=== PATIENT | male | born 1995 | race Caucasian/White ===

== ENCOUNTER 2022-01-01 13:37 | Emergency (ER) | payer OTHER, SELFPAY ==
[2022-01-01 13:52] VITALS: BP 162/82; PULSE 103; RESP 18; TEMP 36.6; O2SAT 100
--- NOTE | 2022-01-01 16:02 | ED.GENADULT ---
HPI - General Adult General Chief complaint: Wound/Laceration Stated complaint: draining wound Time Seen by Provider: 01/01/22 14:25 Source: patient Mode of arrival: ambulatory Limitations: no limitations History of Present Illness HPI narrative: Patient is a 26-year-old male who presents to the ED with report of draining perianal abscess on R buttocks. Patient reports he was seen at [facility] ED yesterday at which point he was diagnosed with a perianal abscess. He states he had a CT scan performed of his pelvis, in addition to blood work, blood cultures. He was told his white blood cell count was fairly high, but is unsure of the number. I&D was not performed yesterday. He was given Bactrim and has a general surgery follow-up appointment on . Patient reports today he sat down on the toilet to have a bowel movement and noticed that the abscess seemed to be draining and bleeding. He denies any blood in the stool, no pain with bowel movement. States he is otherwise felt fine besides the abscess. No fevers, nausea, vomiting. Related Data Allergies Allergy/AdvReac Type Severity Reaction Status Date / Time No Known Allergies Allergy Verified 01/01/22 18:54 Review of Systems Review of Systems: CONSTITUTIONAL: Denies fever, chills, or sweats. GASTROINTESTINAL: Denies rectal bleeding, abdominal pain, nausea, vomiting, or diarrhea. GENITOURINARY: Denies dysuria or hematuria. SKIN: Reports drainage/bleeding from perianal abscess. All systems reviewed & are unremarkable except as noted in HPI and below PMFSH Past Medical History Medical History (Updated 01/01/22 @ 18:42 by Kika Mcintosh PA-C) No pertinent past medical history Surgical History Surgical History (Updated 01/01/22 @ 16:43 by Kika Mcintosh PA-C) No pertinent past surgical history Social History Social History (Updated 01/01/22 @ 16:43 by Kika Mcintosh PA-C) Smoking status: Never smoker Exam Narrative: GENERAL: Well appearing, well-nourished, non-toxic, in no acute distress. HEAD: Normocephalic, atraumatic. NECK: Supple. No adenopathy, no masses. RESPIRATORY: Airway patent, respirations nonlabored. Clear to auscultation bilaterally, no rales, rhonchi, wheezing. CARDIOVASCULAR: Regular rate and rhythm without murmurs, rubs, or gallops. Peripheral pulses 2+ and equal bilaterally. ABDOMINAL: Soft, nontender, nondistended, no hepatosplenomegaly. Normoactive BS. RECTAL: Normal anus with normal rectal tone. No bleeding in/around anus. No fluctuance immediately surrounding anus. No visible external hemorrhoids. Small area of fluctuance a few centimeters lower than anus in perineum/just to right of midline in R lower buttock with pinpoint area of active drainage, draining purulent sanguinous material. No significant odor. Mild underlying induration extending laterally. No palpable extension of fluctuance into scrotum. MUSCULOSKELETAL: Moves all extremities. Strength/ROM intact without gross deformities. SKIN: Warm, dry, normal color. No rashes. NEURO: A&O X3. Speech clear. Cranial nerves II-XII grossly intact. Steady gait. No ataxic movements. PSYCHIATRIC: Appropriate mood and affect. Normal interaction. Course Vital Signs Vital signs: Vital Signs Temperature 97.9 F 01/01/22 13:52 Pulse Rate 103 H 01/01/22 13:52 Respiratory Rate 18 01/01/22 13:52 Blood Pressure 162/82 H 01/01/22 13:52 Pulse Oximetry 100 01/01/22 13:52 Oxygen Delivery Room Air 01/01/22 13:52 Temperature 97.9 F 01/01/22 13:52 Pulse Rate 80 01/01/22 18:52 Respiratory Rate 18 01/01/22 18:52 Blood Pressure 122/78 01/01/22 18:52 Pulse Oximetry 99 01/01/22 18:52 Oxygen Delivery Room Air 01/01/22 13:52 Procedures Abscess I/D carrie-rectal: Date of Incision: 01/01/22 Time of Incision: 17:55 Side (if applicable): right Sedation/analgesia: none Local Anesthetic: lidocaine 1% and with
[2022-01-01 18:52] VITALS: BP 122/78; PULSE 80; RESP 18; O2SAT 99
== END 2022-01-01 19:09 | disposition home or self-care (01) ==
PROVIDERS: Emergency Provider Emergency Medicine; PCP Internal Medicine
DX: K61.0 Anal abscess (principal)
CPT/HCPCS: 46050; 87070; 87075; 87147; 87181; 87186; 87205; 99283